=== PATIENT | male | born 1945 | race Caucasian/White ===

== ENCOUNTER → 2024-01-14 14:32 | Outpatient (REF) | payer MEDICARE, OTHER, SELFPAY | LOC: RAD 14:32 | PROVIDERS: ATTENDING PHYSICIAN Psychiatry & Neurology Neurology; FAMILY PHYSICIAN Student in an Organized Health Care Education/Training Program | DX: M25.552 Pain in left hip (principal) | CPT/HCPCS: 73502 ==

== ENCOUNTER 2024-04-27 08:57 | Emergency (ER) | payer MEDICARE, OTHER, SELFPAY ==
[2024-04-27 08:58] VITALS: BP 146/104
--- NOTE | 2024-04-27 09:13 | ED.MUSCINJ ---
HPI-Injury
General
Chief Complaint: Musculo-Skeletal Complaint
Source: patient
Exam Limitations: none
Time Seen by Provider: 04/27/24 09:12
Nursing documentation reviewed up to this point in time: agreed with
History of Present Illness-Injury
Initial Injury comments:
78-year-old male with history of chronic back pain on gabapentin, arthritis in both shoulders, right knee arthroscopy for meniscus tear, presents stating left knee pain noted as he got out of bed yesterday morning. The knee has become increasingly
painful. No recollection of overuse or injury.
Past History
Past History
ED Past Medical History: GERD, Hypercholesterolemia, Other (FOY, frequent Dizziness) and Other (Chronic low back pain from arthritis)
ED Past Surgical History: Orthopedic (Arthroscopy right knee for meniscus tear, arthroscopy right shoulder)
Social History
Tobacco: Non-smoker
Alcohol: Occasional
Drug: None
Personal: Single
Living: with family
Employment: Employed
Review of Systems
Review of Systems
Allergies reviewed?: Yes
All Other Systems: ROS reviewed and negative except as documented in HPI and ROS
Constitutional: Denies fever
Cardiac: Denies chest pain
ABD/GI: Denies abdominal pain
Musculoskeletal: Reports other (Left knee pain)
Skin: Reports no symptoms
Phy Exam
Physical Exam
Physical Exam:
GENERAL: No acute distress. A&Ox3.
CONSTITUTIONAL: Afebrile.
RESPIRATORY: Regular respirations, nonlabored, lungs clear.
CARDIOVASCULAR: Regular rate and rhythm, no murmurs, no rubs.
GI: Soft, nontender
MUSCULOSKELETAL: Full ROM of left knee. No swelling noted. Moves with ease. Well perfused.
SKIN: Warm, dry, pink
PSYCH: Normal mood and affect. Well kept, interactive and appropriate
NEUROLOGIC: Awake, alert and oriented. No focal neurological deficits
Injury Course
Orders/Labs/Results
Orders:
Orders
04/27/24 09:01
CR Knee - Left 4 Or More View* Urgent
Reason For Exam: pain
04/27/24 09:13
Knee Immobilizer Left-Treatmen ONCE
Procedures
Splinting/Sling Placement
Left Knee:
Procedure completed by: I Day FRACTIONATION SUPERVISOR
Pre-splint extermity exam: good alignment
Type of splint: knee immobilizer
Normal distal neurovascular exam?: Yes
MDM/Problems Addressed
Differential Diagnosis Includes:
Knee sprain, meniscus tear, osteoarthritis.
MDM/Problems Addressed:
78-year-old male with history of chronic back pain on gabapentin, arthritis in both shoulders, right knee arthroscopy for meniscus tear, presents stating left knee pain noted as he got out of bed yesterday morning. The knee has become increasingly
painful. No recollection of overuse or injury.
Knee x-ray shows nothing acute. DJD
After knee immobilizer applied, pt up and ambulating well.
Referred to ortho for f/u
*Critical Care Note
Total Time (30-74mins, 75-104mins- exclusive of procedures): Not Applicable
ED Attending Note
-
Portions of this chart may have been created with voice recognition software.� Occasional wrong word or��sound alike� substitutions may have occurred due to the inherent limitations of voice recognition software.
Discharge Plan
Departure
Patient Disposition: Home (Routine Discharge)
Date of Disposition: 04/27/24
Time of Disposition: 09:28
Patient with high blood pressure during this ER visit?: Yes
Condition: Good
Discharge Problem:
Acute pain of left knee
Instructions: Knee Immobilizer (DC), Knee Pain (DC)
Prescriptions:
No Action
zolpidem 5 MG tablet
5 mg PO HSPRN PRN (Reason: insomnia)
simvastatin 10 MG tablet
10 mg PO DAILY
pantoprazole [Protonix] 20 MG tablet,delayed release (DR/EC)
20 mg PO DAILY
sucralfate 1 GM/10 ML suspension
1 gm PO ACHS Qty: 60 0RF
oseltamivir [Tamiflu] 75 mg capsule
75 mg PO BID 5 Days Qty: 10 0RF
Referrals:
Sandra Hammonds I., DO [Active] - Call in 1-3 days for appt
Activity Restrictions/Additional Instructions:
As we discussed, see your orthopedic doctor within the next 2 weeks. If not improving, you should have further evaluation
Wear the immobilizer until you can walk comfortably and the knee feels stable without it.
When resting, open the immobilizer and apply cold compress for 15 minutes off and on today and tomorrow.
Tylenol as needed for pain.
Interventions
Interventions:
*Risk Screen - Suicide Last Done: 04/27/24 08:58
*General Assessment Last Done: 04/27/24 08:58
*Neglect/Abuse Screening Last Done: 04/27/24 08:58
ED- Fall Risk Assessment Last Done: 04/27/24 09:21
*ED COVID-19 Vaccine History Last Done: 04/27/24 09:17
*Nursing Disposition Last Done: 04/27/24 09:43
ED-Musculoskeletal Assessment Last Done: 04/27/24 09:21
Discharge Date and Time
Discharge Date/Time: 04/27/24 09:44
Print Language: CROATIAN
[2024-04-27 09:17] VITALS: BMI 25.7
[2024-04-27 09:32] VITALS: BP 134/100
== END 2024-04-27 09:44 | disposition home or self-care (01) ==
LOC: EMR 08:57
PROVIDERS: EMERGENCY PHYSICIAN Student in an Organized Health Care Education/Training Program; FAMILY PHYSICIAN Student in an Organized Health Care Education/Training Program
DX: M25.562 Pain in left knee (principal); G89.29 Other chronic pain; M54.9 Dorsalgia, unspecified; K21.9 Gastro-esophageal reflux disease without esophagitis; E78.00 Pure hypercholesterolemia, unspecified
CPT/HCPCS: 99283; 29505; 73564

== ENCOUNTER → 2024-07-07 09:44 | Outpatient (REF) | payer MEDICARE, OTHER, SELFPAY | LOC: RST 09:44 | PROVIDERS: ATTENDING PHYSICIAN Nurse Practitioner Family; FAMILY PHYSICIAN Physician Assistant Medical | DX: R13.19 Other dysphagia (principal) | CPT/HCPCS: 74230; 92611 ==

== ENCOUNTER → 2024-09-19 14:26 | Outpatient (REF) | payer MEDICARE, OTHER, SELFPAY ==
[2024-09-19 16:43] LABS: Blood Urea Nitrogen 20 mg/dl (9-20); Calcium 8.9 mg/dl (8.4-10.2); Carbon Dioxide 29 mmol/L (22-30); Chloride 103 mmol/L (98-107); Glucose 96 mg/dl (70-99); Potassium 4.2 mmol/L (3.5-5.1); Sodium 141 mmol/L (135-145); eGFR > 60.00
== END ==
LOC: REG 14:26
PROVIDERS: ATTENDING PHYSICIAN Specialist; FAMILY PHYSICIAN Physician Assistant Medical
DX: R31.0 Gross hematuria (principal)
CPT/HCPCS: 36415; 80048

== ENCOUNTER → 2024-09-23 11:37 | Outpatient (REF) | payer MEDICARE, OTHER, SELFPAY | LOC: HWRAD 11:37 | PROVIDERS: ATTENDING PHYSICIAN Specialist; FAMILY PHYSICIAN Physician Assistant Medical | DX: R31.0 Gross hematuria (principal) | CPT/HCPCS: 74178; Q9967 ==

== ENCOUNTER → 2024-10-06 12:54 | Outpatient (REF) | payer MEDICARE, OTHER, SELFPAY ==
[2024-10-06 14:10] LABS: IgA 83 mg/dl (70-400)
[2024-10-08 15:20] LABS: tTG IgG Antibody 24.3 EU/ml (0-19)
[2024-10-09 01:32] LABS: Endomysial IgA Antibody Titer <1:10 (<1:10)
== END ==
LOC: REG 12:54
PROVIDERS: ATTENDING PHYSICIAN Family Medicine
DX: R10.84 Generalized abdominal pain (principal)
CPT/HCPCS: 36415; 82784; 83516; 86231

== ENCOUNTER → 2024-10-09 14:22 | Outpatient (REF) | payer MEDICARE, OTHER, SELFPAY | LOC: HWRAD 14:22 | PROVIDERS: ATTENDING PHYSICIAN Family Medicine | DX: R10.84 Generalized abdominal pain (principal) | CPT/HCPCS: 76700 ==

== ENCOUNTER 2025-01-28 06:18 | Day surgery (SDC) | payer MEDICARE, OTHER, SELFPAY | END 2025-01-28 13:59 | disposition home or self-care (01) | LOC: GI 06:18 | PROVIDERS: ATTENDING PHYSICIAN Specialist | DX: Z12.11 Encounter for screening for malignant neoplasm of colon (principal); K63.5 Polyp of colon; K57.30 Diverticulosis of large intestine without perforation or abscess without bleeding; K31.89 Other diseases of stomach and duodenum; R10.84 Generalized abdominal pain; R74.8 Abnormal levels of other serum enzymes | CPT/HCPCS: 45385; 43239; 88305; 88342 ==

== ENCOUNTER → 2025-04-17 09:36 | Outpatient (REF) | payer MEDICARE, OTHER, SELFPAY | LOC: RAD 09:36 | PROVIDERS: ATTENDING PHYSICIAN Psychiatry & Neurology Neurology | DX: M25.559 Pain in unspecified hip (principal) | CPT/HCPCS: 73502 ==

== ENCOUNTER 2025-05-26 20:33 | Emergency (ER) | payer MEDICARE, OTHER, SELFPAY ==
[2025-05-26 20:51] VITALS: BP 164/101
[2025-05-26 21:21] LABS: Hematocrit 41.8 % (39.0-52.0); Hemoglobin 14.9 g/dL (13.0-18.0); Mean Corp Hgb Conc. 35.6 g/dL (33.0-37.0); Mean Corpuscular Volume 88.0 fL (80.0-94.0); Nucleated Red Blood Cells % 0 % (-); Platelet Count 160 10^3/uL (130-400); Red Cell Dist. Width 13.2 % (11.5-14.5)
[2025-05-26 21:44] LABS: ALT (SGPT) 14 U/L (0-50); AST (SGOT) 20 U/L (17-59); Albumin 4.5 g/dl (3.5-5.0); Alkaline Phosphatase 51 U/L (38-126); Blood Urea Nitrogen 16 mg/dl (9-20); Calcium 10.0 mg/dl (8.4-10.2); Carbon Dioxide 29 mmol/L (22-30); Chloride 106 mmol/L (98-107); Glucose 91 mg/dl (70-99); Lipase 93 U/L (23-300); Potassium 4.8 mmol/L (3.5-5.1); Sodium 140 mmol/L (135-145); Total Protein 6.9 g/dl (6.3-8.2); eGFR > 60.00
[2025-05-26 21:55] LABS: Troponin I < 0.012 ng/ml
[2025-05-26 23:58] VITALS: BP 161/93
[2025-05-27] VITALS: BP 178/88
[2025-05-27 01:00] VITALS: BP 151/89
--- NOTE | 2025-05-27 01:00 | ED.GENMED ---
History of Present Illness
General
Chief Complaint: Chest Pain
Source: patient
Exam Limitations: none
Time Seen by Provider: 05/27/25 00:36
Nursing documentation reviewed up to this point in time: agreed with
History of Present Illness
History of Present Illness:
Note:
CHIEF COMPLAINT(S)
Chest pain
HISTORY OF PRESENT ILLNESS
The patient is an 79-year-old male presenting with chest pain that has been ongoing for approximately three days. The patient describes the pain as starting in the area near the left nipple. Initially, the pain lasted about an hour, causing
significant nervousness. The pain returned on Sunday night, lasting for a couple of hours. The patient notes that the pain is provoked by palpation. No specific activity triggered the episodes, and currently, the pain is not present. Upon arrival at
the emergency department, the patients electrocardiogram showed normal results, as did blood tests evaluating cardiac markers like troponin, as well as tests for pneumonia.
PHYSICAL EXAM
- General: Demonstrates no acute distress.
- Ear, Nose, and Throat: Non-contributory findings noted.
- Cardiovascular: Normal heart sounds with S1 and S2; no gallops or murmurs.
- Pulmonary: Clear lung sounds bilaterally; no respiratory distress.
- Abdomen: Soft, non-tender, with no rebound tenderness or guarding.
- Extremities: No edema present; normal pulses in all extremities.
- Neurologic: The patient is alert and oriented to person, place, time, and situation; able to ambulate without difficulty.
PROBLEM LIST
- Acute: Chest pain, likely musculoskeletal etiology.
PLAN
The patient will be sent for a chest X-ray to further investigate the chest pain. As long as the chest X-ray results are normal, the patient might be discharged home with appropriate follow-up instructions.
DIFFERENTIAL DIAGNOSIS
The Differential Diagnosis includes, in no particular order and is not limited to:
1. Musculoskeletal chest pain (e.g., costochondritis or rib strain)
2. Gastroesophageal reflux disease (GERD)
3. Angina pectoris
4. Myocardial infarction (unlikely based on testing)
5. Pulmonary embolism
6. Pneumonia
7. Pleural effusion
8. Aortic dissection
9. Pericarditis
10. Pneumothorax
EKG
My independent EKG interpretation is:
- Time of EK:57 p.m. on 05/26/25
- Rhythm: Normal sinus rhythm with premature atrial complexes
- Heart rate: 68 bpm
No Heading
[object Object]
HEART:
Result Summary
3 points Low Score (0-3 points)
Risk of MACE of 0.9-1.7%.
Inputs:
History -> 0 = Slightly suspicious
EKG -> 0 = Normal
Age -> 2 = >=5
Risk Factors -> 1 = 1-2 risk factors
Initial Troponin -> 0 = <=ormal limit
CARE-UPDATE
05/27/25 - 02:23
The patient currently exhibits no signs of acute coronary syndrome or pulmonary embolism, and reports being pain-free. Troponin levels are normal. The patient is deemed safe for discharge and advised to follow up with their primary care physician.
Information on the discharge plan and guidelines for future care (Godfs) has been provided to the patient.
Disposition:
SUMMARY OF ENCOUNTER
The patient, an 79-year-old male, was seen in the emergency department due to ongoing chest pain for approximately three days. Initial tests, including an electrocardiogram and blood tests for cardiac markers, were normal. The chest pain, described
as being provoked by palpation, was not present at the time of examination. Based on the findings, the pain is suspected to be of musculoskeletal origin, possibly costochondritis or rib strain.
DISPOSITION
Discharge
ASSESSMENT
Chest pain, likely a musculoskeletal etiology such as costochondritis or rib strain.
PLAN
The patient was advised to undergo a chest X-ray to further assess the chest pain. If results are normal, and given the absence of symptoms, the patient will be discharged with follow-up instructions.
INDEPENDENT REVIEW OF LABS AND INTERPRETATION OF TESTS
My independent EKG interpretation shows normal sinus rhythm with premature atrial complexes and no significant abnormalities. Troponin levels and cardiac markers were normal.
PATIENT EDUCATION AND COUNSELING
The patient was informed that the chest pain is likely musculoskeletal in nature. Information regarding management and indications for return were provided.
FOLLOW-UP INSTRUCTIONS
The patient was advised to follow up with their primary care physician to ensure ongoing evaluation and management of the chest pain.
MEDICATION RECONCILIATION
No medications were administered or prescribed during the visit.
MEDICAL DECISION MAKING
-Complexity of Data Reviewed: Chronic conditions affecting care. Differential diagnosis included musculoskeletal chest pain, GERD, angina, myocardial infarction (unlikely), pulmonary embolism, pneumonia, pleural effusion, aortic dissection,
pericarditis, and pneumothorax.
-Data:
Category 1
Tests conducted included EKG and cardiac marker tests, all showing normal results.
My independent interpretation of EKG showed normal findings, supporting the discharge plan.
-Risk:
Consideration of Admission/Observation: Escalation of care including admission/observation was considered given the complexity and risk of the patients presenting complaint and exam findings. However, ultimately I feel the patient is safe for
outpatient management with close follow-up. Reasoning: Work-up is reassuring, does not reveal any acute life/organ threatening processes, patients symptoms are well controlled upon reevaluation, reexamination is reassuring, vitals are stable,
patient is agreeable with discharge, and reliable for follow-up.
DIAGNOSIS
Musculoskeletal chest pain (ICD-10 Code: R07.82)
Chest wall pain (ICD-10 Code: R07.89)
Past History
Past History
ED Past Medical History: GERD, Hypercholesterolemia, Other (FOY, frequent Dizziness) and Other (Chronic low back pain from arthritis)
ED Past Surgical History: Orthopedic (Arthroscopy right knee for meniscus tear, arthroscopy right shoulder)
Social History
Tobacco: Non-smoker
Alcohol: Occasional
Drug: None
Personal: Single
Living: with family
Employment: Employed
Phy Exam
Physical Exam
Physical Exam:
.
Scores
Heart Score for Chest Pain Patients
STEMI patient?: Not applicable
Course
Orders/Labs/Results
Orders:
Orders
05/26/25 20:35
ECG [Electrocardiogram (*1)] Urgent
Reason for Study: Chest Pain
EKG- Treatment ONCE
05/26/25 21:06
Complete Blood Count/With Diff Urgent
Comprehensive Metabolic Panel Urgent
Lipase Urgent
Troponin I Urgent
05/27/25 00:15
CR Chest - 2 Views Urgent
Reason For Exam: L chest pain
Abnormal Lab Results
05/26/25
21:06
MCH 31.4 H pg
(27.0-31.0)
05/26/25 21:06
05/26/25 21:06
Vital Signs
Initial and Last Documented VS:
Initial Vital Signs
Temp Pulse Resp BP Pulse Ox
97.8 F 61 16 164/101 98
05/26/25 20:51 05/26/25 20:51 05/26/25 20:51 05/26/25 20:51 05/26/25 20:51
Last Documented Vital Signs
Temp Pulse Resp BP Pulse Ox
97.8 F 54 20 161/87 98
05/26/25 20:51 05/27/25 02:00 05/27/25 02:00 05/27/25 02:00 05/27/25 01:02
*Pulse Oximetry
SaO2: 98
Oxygen Mode of Delivery: Room air
Patient hypoxic: no
*Critical Care Note
Total Time (30-74mins, 75-104mins- exclusive of procedures): Not Applicable
ED Attending Note
-
Portions of this chart may have been created with voice recognition software.� Occasional wrong word or��sound alike� substitutions may have occurred due to the inherent limitations of voice recognition software.
Discharge Plan
Departure
Patient Disposition: Home (Routine Discharge)
Date of Disposition: 05/27/25
Time of Disposition: 02:27
Patient with high blood pressure during this ER visit?: Yes
Condition: Good
Discharge Problem:
Acute chest wall pain
Instructions: Chest Pain PCP Follow Up, BLOOD PRESSURE
Prescriptions:
No Action
zolpidem 5 MG tablet
5 mg PO HSPRN PRN (Reason: insomnia)
simvastatin 10 MG tablet
10 mg PO DAILY
pantoprazole [Protonix] 20 MG tablet,delayed release (DR/EC)
20 mg PO DAILY
sucralfate 1 GM/10 ML suspension
1 gm PO ACHS Qty: 60 0RF
oseltamivir [Tamiflu] 75 mg capsule
75 mg PO BID 5 Days Qty: 10 0RF
Referrals:
Edmundo Chance DO [Family Provider, Family Practice] - Call in 1-3 days for appt
Interventions
Interventions:
*Risk Screen - Suicide Last Done: 05/27/25 01:58
*General Assessment Last Done: 05/27/25 01:58
*Neglect/Abuse Screening Last Done: 05/27/25 01:58
*ED- Fall Risk Assessment Last Done: 05/27/25 01:58
*ED COVID-19 Vaccine History Last Done: 05/27/25 01:58
ED- Cardiac Assessment Last Done: 05/27/25 01:58
Discharge Date and Time
Print Language: GEORGIAN
[2025-05-27 02:00] VITALS: BP 161/87
== END 2025-05-27 03:08 | disposition home or self-care (01) ==
LOC: EMR 20:33
PROVIDERS: Emergency Medicine; EMERGENCY PHYSICIAN Emergency Medicine; FAMILY PHYSICIAN Family Medicine; REFERRING PHYSICIAN Internal Medicine Cardiovascular Disease
DX: R07.89 Other chest pain (principal); E78.00 Pure hypercholesterolemia, unspecified; G89.29 Other chronic pain
CPT/HCPCS: 99285; 71046; 80053; 83690; 84484; 85025; 93005

== ENCOUNTER 2025-06-21 21:11 | Emergency (ER) | payer MEDICARE, OTHER, SELFPAY ==
[2025-06-21 21:12] VITALS: BP 167/86
[2025-06-21 21:41] LABS: COVID-19 Antigen Negative (Negative)
[2025-06-21 23:44] VITALS: BMI 26.6
[2025-06-22] MEDS: DECADRON 10 MG PO (00:12)
[2025-06-22] MEDS: DUONEB 3 ML INH (00:13)
[2025-06-22 00:45] VITALS: BP 136/84
--- NOTE | 2025-06-22 00:47 | ED.GENMED ---
History of Present Illness
General
Chief Complaint: Cough
Source: patient
Exam Limitations: none
Time Seen by Provider: 06/21/25 23:17
Nursing documentation reviewed up to this point in time: agreed with
History of Present Illness
History of Present Illness:
Note:
CHIEF COMPLAINT(S)
- Sore throat
- Burning sensation in the ears
- Hoarseness of voice
HISTORY OF PRESENT ILLNESS
The patient is an 79-year-old male presenting with symptoms of a sore throat, burning sensation in the ears, and hoarseness of voice. The patient notes that these symptoms began approximately two years ago and have recurred. He describes feeling
'crazy with coffee stuff' and these symptoms tend to disrupt his sleep. Kasj-any-shsjfws treatments have not provided relief. He tested negative for both COVID-19 and influenza. A recent chest X-ray ruled out pneumonia but indicated a small scar on
the lung. The patient recalls previously experiencing a similar episode diagnosed as an upper respiratory tract infection, for which minimal intervention was provided. Currently, he does not have a fever and is not diabetic. The patient was
administered a breathing treatment and a steroid during the visit, which seemed to offer symptom relief.
PAST MEDICAL AND SURIGICAL HISTORY
No significant medical or surgical history was reported.
CHRONIC MEDICAL CONDITIONS SIGNIFICANTLY AFFECTING CARE
No chronic medical conditions noted.
SOCIAL DETERMINANTS AFFECTING HEALTH
The patient does not smoke and denies exposure to chemicals at work.
REVIEW OF SYSTEMS
- Ear, Nose, and Tongue: Burning sensation in the ears, sore throat, hoarseness of voice.
PHYSICAL EXAM
General: Alert, no acute distress.
Skin: Warm, dry.
Head: Normocephalic, atraumatic.
Neck: Supple, trachea midline.
Eyes, Ears, Nose, Mouth, and Throat: Oral mucosa moist, a little red throat, fluid in the ears but no infection.
Cardiovascular: Normal peripheral perfusion, No edema.
Respiratory: Respirations are non-labored, lungs sound clear without wheezing.
Gastrointestinal : Abdomen nondistended
Back: Normal range of motion, Normal alignment.
Musculoskeletal: Normal range of motion, normal strength.
Neurological: Alert and oriented to person, place, time, and situation, No focal neurological deficit observed.
Psychiatric: Cooperative, appropriate mood & affect.
PROBLEM LIST
Acute Problems:
- Sore throat
- Burning sensation in the ears
- Hoarseness of voice
PLAN
- Administer a breathing treatment.
- Provide a steroid to alleviate the symptoms.
- Monitor symptoms and advise a follow-up if symptoms persist or worsen.
DIFFERENTIAL DIAGNOSIS
The Differential Diagnosis includes, in no particular order and is not limited to:
1. Upper respiratory tract infection
2. Acute pharyngitis
3. Laryngitis
4. Allergic rhinitis
5. Gastroesophageal reflux disease (GERD)
6. Viral infection (unspecified)
7. Sinusitis
8. Otitis media with effusion
9. Hypothyroidism
10. Chronic obstructive pulmonary disease (COPD) exacerbation
Disposition:
SUMMARY OF ENCOUNTER
The patient, an 79-year-old male, presented with symptoms of a sore throat, burning sensation in the ears, and hoarseness of voice. These symptoms began approximately two years ago, have recurred, and disrupt sleep. He tested negative for COVID-19,
influenza, and RSV. A recent chest X-ray ruled out pneumonia but indicated a small scar on the lung. A diagnosis of an upper respiratory tract infection was made. During the visit, the patient received a steroid and albuterol inhalation treatment,
which provided symptom relief.
PLAN
The patient will be prescribed cough drops and an albuterol inhaler for symptom management. The effect of the steroid is expected to continue providing relief over the next several days.
INDEPENDENT REVIEW OF LABS AND INTERPRETATION OF TESTS
My independent review of viral tests includes negative results for COVID-19, influenza, and RSV.
My independent chest X-ray interpretation indicates no signs of pneumonia.
MEDICATION RECONCILIATION
1. Prescribed: Albuterol inhaler
2. Prescribed: Cough drops
MEDICAL DECISION MAKING
-Complexity of Data Reviewed: The differential diagnosis includes upper respiratory tract infection, acute pharyngitis, laryngitis, allergic rhinitis, GERD, unspecified viral infection, sinusitis, otitis media with effusion, hypothyroidism, and COPD
exacerbation.
-Data:
Category 1
My review of the patient�s viral tests confirmed negative results for COVID-19, influenza, and RSV.
My independent interpretation of the chest X-ray confirmed no pneumonia and only a small scar present.
-Risk:
Prescription medication was prescribed: Albuterol inhaler and cough drops.
Consideration of Admission/Observation: Escalation of care including admission/observation was considered given the complexity and risk of the patients presenting complaint, exam findings, and/or their underlying comorbidities. However, ultimately I
feel the patient is safe for outpatient management with close follow-up. Reasoning: Work-up reassuring, does not reveal any acute life/organ-threatening processes, patients symptoms well controlled upon reevaluation, reexamination is reassuring,
vitals are stable, patient agreeable with discharge, reliable for follow-up.
DIAGNOSIS
- Upper respiratory tract infection (J06.9)
Past History
Past History
ED Past Medical History: GERD, Hypercholesterolemia, Other (FOY, frequent Dizziness) and Other (Chronic low back pain from arthritis)
ED Past Surgical History: Orthopedic (Arthroscopy right knee for meniscus tear, arthroscopy right shoulder)
Social History
Tobacco: Non-smoker
Alcohol: Occasional
Drug: None
Personal: Single
Living: with family
Employment: Employed
Phy Exam
Physical Exam
Physical Exam:
.
Course
Orders/Labs/Results
Orders:
Orders
06/21/25 21:15
CR Chest - 2 Views Urgent
Comment:
Reason For Exam: cough
06/21/25 21:18
COVID-19 Antigen Urgent
Source: Nasal Swab
Influenza A+B Rapid Molecular Urgent
SKY Source: Nasal Swab
Specimen Description:
06/21/25 23:40
Dexamethasone Pf [Decadron] 10 mg PO NOW STA
Ipratropium/Albuterol Sulfate [Duoneb] 3 ml INH R NOW ONE
06/21/25 23:44
Respiratory Syncytial Virus Urgent
SKY Source: Nasal Swab
Specimen Description:
Date Specimen was Collected: 06/21/25
Time Specimen was Collected: 23:35
Vital Signs
Initial and Last Documented VS:
Initial Vital Signs
Temp Pulse Resp BP Pulse Ox
98.3 F 67 16 167/86 98
06/21/25 21:12 06/21/25 21:12 06/21/25 21:12 06/21/25 21:12 06/21/25 21:12
Last Documented Vital Signs
Temp Pulse Resp BP Pulse Ox
98.3 F 62 16 136/84 98
06/21/25 21:12 06/22/25 00:45 06/22/25 00:45 06/22/25 00:45 06/22/25 00:48
*Radiology
Radiology exam reviewed: radiology read reviewed
*Pulse Oximetry
SaO2: 98
Oxygen Mode of Delivery: Room air
Patient hypoxic: no
*Critical Care Note
Total Time (30-74mins, 75-104mins- exclusive of procedures): Not Applicable
ED Attending Note
-
Portions of this chart may have been created with voice recognition software.� Occasional wrong word or��sound alike� substitutions may have occurred due to the inherent limitations of voice recognition software.
Discharge Plan
Departure
Patient Disposition: Home (Routine Discharge)
Date of Disposition: 06/22/25
Time of Disposition: 00:47
Patient with high blood pressure during this ER visit?: Yes
Condition: Good
Discharge Problem:
Acute upper respiratory infection
Instructions: Viral Upper Respiratory Infection, Adult (DC), BLOOD PRESSURE
Prescriptions:
New
benzonatate 100 mg capsule
100 mg PO Q4H PRN (Reason: Cough) Qty: 20 0RF
albuterol sulfate [Ventolin HFA] 90 mcg/actuation HFA aerosol inhaler
1 inh inhalation Q6H PRN (Reason: shortness of breath or wheezing) Qty: 8.5 0RF
No Action
zolpidem 5 MG tablet
5 mg PO HSPRN PRN (Reason: insomnia)
simvastatin 10 MG tablet
10 mg PO DAILY
pantoprazole [Protonix] 20 MG tablet,delayed release (DR/EC)
20 mg PO DAILY
sucralfate 1 GM/10 ML suspension
1 gm PO ACHS Qty: 60 0RF
oseltamivir [Tamiflu] 75 mg capsule
75 mg PO BID 5 Days Qty: 10 0RF
Referrals:
Remi Pantoja PA-C [Family Provider, Family Practice]
Interventions
Interventions:
*Risk Screen - Suicide Last Done: 06/21/25 23:44
*General Assessment Last Done: 06/21/25 23:44
*Neglect/Abuse Screening Last Done: 06/21/25 23:44
*ED- Fall Risk Assessment Last Done: 06/21/25 23:44
*ED COVID-19 Vaccine History Last Done: 06/21/25 23:44
*Nursing Disposition Last Done: 06/22/25 01:07
ED- Pulmonary Assessment Last Done: 06/21/25 23:48
Discharge Date and Time
Discharge Date/Time: 06/22/25 01:07
Print Language: SWEDISH
== END 2025-06-22 01:07 | disposition home or self-care (01) ==
LOC: EMR 21:11
PROVIDERS: Emergency Medicine; EMERGENCY PHYSICIAN Student in an Organized Health Care Education/Training Program; FAMILY PHYSICIAN Physician Assistant Medical
DX: J06.9 Acute upper respiratory infection, unspecified (principal); R49.0 Dysphonia; Z11.52 Encounter for screening for COVID-19; R03.0 Elevated blood-pressure reading, without diagnosis of hypertension; E78.00 Pure hypercholesterolemia, unspecified; M19.90 Unspecified osteoarthritis, unspecified site; J98.4 Other disorders of lung; M54.50 Low back pain, unspecified; K21.9 Gastro-esophageal reflux disease without esophagitis; G89.29 Other chronic pain; Z88.1 Allergy status to other antibiotic agents; Z88.5 Allergy status to narcotic agent; Z88.8 Allergy status to other drugs, medicaments and biological substances
CPT/HCPCS: 99283; 94640; 71046; 87502; 87807; 87811

== ENCOUNTER 2025-06-28 02:34 | Emergency (ER) | payer MEDICARE, OTHER, SELFPAY ==
[2025-06-28 02:35] VITALS: BP 152/90
[2025-06-28 02:55] VITALS: BMI 26.1
[2025-06-28 03:05] VITALS: BP 133/77
[2025-06-28 03:17] LABS: Hematocrit 39.4 % (39.0-52.0); Hemoglobin 14.2 g/dL (13.0-18.0); Mean Corp Hgb Conc. 36.0 g/dL (33.0-37.0); Mean Corpuscular Volume 85.8 fL (80.0-94.0); Nucleated Red Blood Cells % 0 % (-); Platelet Count 158 10^3/uL (130-400); Red Cell Dist. Width 12.9 % (11.5-14.5)
[2025-06-28 03:30] LABS: ALT (SGPT) 17 U/L (0-50); AST (SGOT) 20 U/L (17-59); Albumin 3.8 g/dl (3.5-5.0); Alkaline Phosphatase 55 U/L (38-126); Blood Urea Nitrogen 26 mg/dl (9-20); Calcium 8.8 mg/dl (8.4-10.2); Carbon Dioxide 26 mmol/L (22-30); Chloride 106 mmol/L (98-107); Estimated Creatinine Clearance 53 ml/min; Glucose 93 mg/dl (70-99); Lipase 190 U/L (23-300); Potassium 4.4 mmol/L (3.5-5.1); Sodium 137 mmol/L (135-145); Total Protein 5.9 g/dl (6.3-8.2); eGFR > 60.00
[2025-06-28] MEDS: NSS 1000 IV (03:54)
[2025-06-28 04:00] VITALS: BP 127/81
[2025-06-28 05:15] LABS: Urine Character Clear (Clear)
[2025-06-28 06:00] VITALS: BP 144/81
[2025-06-28 06:49] LABS: Urine Red Blood Cell None Seen /HPF (0-2)
--- NOTE | 2025-06-28 07:33 | ED.GENMED ---
History of Present Illness
General
Chief Complaint: Abdominal Pain
Source: patient
Exam Limitations: none
Time Seen by Provider: 06/28/25 06:05
Nursing documentation reviewed up to this point in time: agreed with
History of Present Illness
History of Present Illness:
Patient presents to ED secondary to intermittent left lower/groin pain over the past 3 days. Patient denies any pain at rest, but when he turns or stands up, he feels the pain. Denies swelling. Denies trauma. Denies nausea or vomiting. Denies
fever or chills. Denies change in bowel habits. Denies previous history of similar symptoms. However, patient does report that he has been straining with his bowel movements recently. Denies loss of sensation or weakness of legs. Denies back
pain.
Past History
Past History
ED Past Medical History: GERD, Hypercholesterolemia, Other (FOY, frequent Dizziness) and Other (Chronic low back pain from arthritis)
ED Past Surgical History: Orthopedic (Arthroscopy right knee for meniscus tear, arthroscopy right shoulder)
Social History
Tobacco: Non-smoker
Alcohol: Occasional
Drug: None
Personal: Single
Living: with family
Employment: Employed
Review of Systems
Review of Systems
Allergies reviewed?: Yes
All Other Systems: ROS reviewed and negative except as documented in HPI and ROS
Constitutional: Reports no symptoms
Cardiac: Reports no symptoms
ABD/GI: Reports abdominal pain; Denies nausea, vomiting, diarrhea or constipated
: Reports no symptoms; Denies difficulty voiding
Musculoskeletal: Reports no symptoms; Denies back pain
Skin: Reports no symptoms
Neurological: Reports no symptoms; Denies weakness or numbness
Phy Exam
Physical Exam
Physical Exam:
Physical Exam
General: no apparent distress, not acutely ill. afebrile
Head: nc/at. eomi
Neck: supple. no meningeal signs.
Heart: s1/s2 regular rate and rhythm
Lungs: no acute respiratory distress. clear bilaterally
Abdomen: normal bowel sounds. no distention. mild tenderness noted lateral to suprapubic area with mild soft tissue defect, without swelling
Neuro: alert and oriented x 3. no focal neurological deficits
Skin: no rash
Psychiatric: well kept. interactive and cooperative
Extremities: no edema. no calf tenderness.
Course
Orders/Labs/Results
Orders:
Orders
06/28/25 03:01
IV Insert/Care/Rem.- Treatment PRN
06/28/25 03:09
Complete Blood Count/With Diff Urgent
Comprehensive Metabolic Panel Urgent
Lipase Urgent
06/28/25 03:52
0.9% Sodium Chloride 1000 ml [Nss] 1,000 ml IV BOLUS
06/28/25 05:09
Urinalysis Reflex To Culture Urgent
Date Specimen was Collected: 06/28/25
Time Specimen was Collected: 04:59
Urine Microscopic Reflex Cult Urgent
Urine Culture Urgent
SKY Source: U
Specimen Description:
Date Specimen was Collected: 06/28/25
Time Specimen was Collected: 04:59
Abnormal Lab Results
06/28/25 06/28/25
03:09 05:09
RBC 4.59 L 10^6/uL
(4.70-6.10)
Absolute Monos (auto) 0.7 H 10^3/uL
(0.1-0.6)
Monocytes % 11.1 H %
(1.7-9.3)
BUN 26 H mg/dl
(9-20)
Total Protein 5.9 L g/dl
(6.3-8.2)
Leukocyte Esterase Rfl 2+ A
(Negative)
Urine Bacteria (Reflex) Few A
(Negative)
Urine Albumin (Reflex) 1+ A
(Neg - Trace)
06/28/25 03:09
06/28/25 03:09
Vital Signs
Initial and Last Documented VS:
Initial Vital Signs
Temp Pulse Resp BP Pulse Ox
98 F 68 24 152/90 98
06/28/25 02:35 06/28/25 02:35 06/28/25 02:35 06/28/25 02:35 06/28/25 02:35
Last Documented Vital Signs
Temp Pulse Resp BP Pulse Ox
97.8 F 56 16 152/81 99
06/28/25 08:18 06/28/25 08:18 06/28/25 08:18 06/28/25 08:18 06/28/25 08:18
MDM/Problems Addressed
MDM/Problems Addressed:
History and exam consistent with nonspecific lower abdominal pain/groin pain, possible musculoskeletal etiology versus ventral hernia. Otherwise, patient remains afebrile, hemodynamically stable, and nontoxic-appearing, with no pain, while laying
on the stretcher, during observation. As such, after discussion, patient was discharged home in stable condition, with recommendation to follow-up with PCP for reevaluation, including potential surgical consultation outpatient versus imaging
studies. Advised to return to ED with worsening symptoms, i.e. fever/worsening pain/vomiting. Patient expresses understanding at time of discharge.
*Pulse Oximetry
SaO2: 98
Oxygen Mode of Delivery: Room air
Patient hypoxic: no
*Critical Care Note
Total Time (30-74mins, 75-104mins- exclusive of procedures): Not Applicable
ED Attending Note
-
Portions of this chart may have been created with voice recognition software.� Occasional wrong word or��sound alike� substitutions may have occurred due to the inherent limitations of voice recognition software.
Discharge Plan
Departure
Patient Disposition: Home (Routine Discharge)
Date of Disposition: 06/28/25
Time of Disposition: 07:57
Patient with high blood pressure during this ER visit?: Yes
Condition: Good
Discharge Problem:
Abdominal pain
Instructions: Abdominal Hernia, Abdominal Pain
Prescriptions:
No Action
zolpidem 5 MG tablet
5 mg PO HSPRN PRN (Reason: insomnia)
simvastatin 10 MG tablet
20 mg PO HS
pantoprazole [Protonix] 20 MG tablet,delayed release (DR/EC)
20 mg PO DAILY
albuterol sulfate [Ventolin HFA] 90 mcg/actuation HFA aerosol inhaler
1 inh inhalation Q6H PRN (Reason: shortness of breath or wheezing) Qty: 8.5 0RF
gabapentin 100 mg Tablet
100 mg PO TID
Referrals:
Remi Pantoja PA-C [Family Provider, Family Practice]
Activity Restrictions/Additional Instructions:
As discussed, please follow-up with your primary care physician for reevaluation, including potential surgical consultation outpatient versus obtaining imaging studies, if symptoms persist. Please consider return to ED with worsening symptoms, i.e.
fever/worsening pain/vomiting.
Interventions
Interventions:
*Risk Screen - Suicide Last Done: 06/28/25 02:35
*General Assessment Last Done: 06/28/25 02:56
*Neglect/Abuse Screening Last Done: 06/28/25 02:35
*ED- Fall Risk Assessment Last Done: 06/28/25 02:56
*ED COVID-19 Vaccine History Last Done: 06/28/25 02:56
*Nursing Disposition Last Done: 06/28/25 08:33
IW-Nuiyvo-Jxrpwwyftn Assessment Last Done: 06/28/25 03:02
Discharge Date and Time
Discharge Date/Time: 06/28/25 08:34
Print Language: BHUTANESE
[2025-06-28 08:18] VITALS: BP 152/81
== END 2025-06-28 08:34 | disposition home or self-care (01) ==
LOC: EMR 02:34
PROVIDERS: Emergency Medicine; EMERGENCY PHYSICIAN Emergency Medicine; FAMILY PHYSICIAN Physician Assistant Medical
DX: R10.9 Unspecified abdominal pain (principal); R03.0 Elevated blood-pressure reading, without diagnosis of hypertension; E78.00 Pure hypercholesterolemia, unspecified; K21.9 Gastro-esophageal reflux disease without esophagitis; M47.816 Spondylosis without myelopathy or radiculopathy, lumbar region
CPT/HCPCS: 99284; 96360; 96361; 80053; 81003; 81015; 83690; 85025; 87086

== ENCOUNTER 2025-07-27 10:03 | Outpatient (RCR) | payer MEDICARE, OTHER, SELFPAY | END 2025-07-27 23:59 | disposition home or self-care (01) | LOC: RPT 10:03 | PROVIDERS: ATTENDING PHYSICIAN Physician Assistant Surgical; FAMILY PHYSICIAN Physician Assistant Medical | DX: M48.062 Spinal stenosis, lumbar region with neurogenic claudication (principal); M54.51 Vertebrogenic low back pain; M25.552 Pain in left hip; M25.562 Pain in left knee; M25.512 Pain in left shoulder; Z73.6 Limitation of activities due to disability; M16.12 Unilateral primary osteoarthritis, left hip | CPT/HCPCS: 97110; 97112; 97140; 97163 ==

== ENCOUNTER 2025-08-19 07:30 | Outpatient (RCR) | payer MEDICARE, OTHER, SELFPAY | END 2025-08-19 13:42 | disposition home or self-care (01) | LOC: RPT 07:30 | PROVIDERS: ATTENDING PHYSICIAN Physician Assistant Surgical; FAMILY PHYSICIAN Physician Assistant Medical | DX: M48.062 Spinal stenosis, lumbar region with neurogenic claudication (principal); M54.51 Vertebrogenic low back pain; M25.552 Pain in left hip; M25.562 Pain in left knee; M25.512 Pain in left shoulder; Z73.6 Limitation of activities due to disability; M16.12 Unilateral primary osteoarthritis, left hip | CPT/HCPCS: 97110; 97112 ==